=== PATIENT | male | born 1940 | race Caucasian/White ===

== ENCOUNTER 2021-12-24 09:53 | Outpatient (CLI) | payer MEDICARE | END 2021-12-24 09:54 | disposition home or self-care (01) | LOC: CSHLAB 09:53 | PROVIDERS: ATTEND Internal Medicine Critical Care Medicine | DX: Z20.822 Contact with and (suspected) exposure to COVID-19 (principal) | CPT/HCPCS: 87811 ==

== ENCOUNTER 2021-12-27 07:32 | Outpatient (CLI) | payer MEDICARE | END 2021-12-27 07:33 | disposition home or self-care (01) | LOC: CSHCP 07:32 | PROVIDERS: ATTEND Internal Medicine Critical Care Medicine | DX: R06.09 Other forms of dyspnea (principal); J45.909 Unspecified asthma, uncomplicated; J47.9 Bronchiectasis, uncomplicated | CPT/HCPCS: 71250; 94060; 94726; 94729; 94760 ==

== ENCOUNTER 2022-04-30 09:49 | Outpatient (CLI) | payer MEDICARE | END 2022-04-30 09:50 | disposition home or self-care (01) | LOC: CSHMRI 09:49 | PROVIDERS: ATTEND Nurse Practitioner Family | DX: M47.26 Other spondylosis with radiculopathy, lumbar region (principal); M47.816 Spondylosis without myelopathy or radiculopathy, lumbar region; M48.061 Spinal stenosis, lumbar region without neurogenic claudication | CPT/HCPCS: 72148 ==